=== PATIENT | male | born 1990 | race Caucasian/White ===

== ENCOUNTER 2017-03-24 14:25 | Emergency (ER) | payer BC, OTHER ==
[2017-03-24 14:44] VITALS: BP 150/97; PULSE 67; TEMP 98.2; BMI 18.6
[2017-03-24] MEDS ORDERED: IBUPROFEN 600 MG TABLET (FP) PO ONE ×2 (14:55→15:25)
--- NOTE | 2017-03-24 14:56 | PDOC ---
History of Present Illness - General History Source: Patient Exam Limitations: No Limitations - History of Present Illness Initial Comments: 03/24/17 15:00 The patient is a 26 year old male, with no significant past medical history, who presents to the emergency department with swelling and pain to his left knee status [place]. The patient reports that as he was running through the waves and lost his footing twisting his left knee and then subsequently fell on it. He reports that his pain is a 7 /10 in severity and he cannot ambulate without assistance and has difficulty straightening out his left leg He denies chest pain, shortness of breath, headache, lightheadedness and dizziness. The patient denies head injury. He denies any other bodily pain or injury. Allergies: None Social history: Current everyday smoker (5 cigarettes per day), smoked marijuana , drinks alcohol socially <Patria Denney - Last Filed: 03/24/17 18:20> <Scar Grimes - Last Filed: 03/25/17 10:04> <Kay Porter - Last Filed: 03/25/17 21:25> - General Chief Complaint: Injury Stated Complaint: LEFT KNEE INJURY Time Seen by Provider: 03/24/17 14:52 Past History <Patria Denney - Last Filed: 03/24/17 18:20> <Scar Grimes - Last Filed: 03/25/17 10:04> - Past Medical History Other medical history: H/O DEPRESSION - Surgical History Appendectomy: Yes (05/15/14) - Psycho/Social/Smoking Cessation Hx Anxiety: No Suicidal Ideation: No Smoking History: Current every day smoker Have you smoked in the past 12 months: Yes Number of Cigarettes Smoked Daily: 5 Information on smoking cessation initiated: Yes 'Breaking Loose' booklet given: 03/24/17 Hx Alcohol Use: Yes (RARELY SOCIAL) Drug/Substance Use Hx: Yes (MARIJUAN) Substance Use Type: Alcohol, Marijuana Hx Substance Use Treatment: No <Kay Porter - Last Filed: 03/25/17 21:25> - Past Medical History Allergies/Adverse Reactions: Allergies Allergy/AdvReac Type Severity Reaction Status Date / Time No Known Allergies Allergy Verified 03/24/17 14:26 Home Medications: Ambulatory Orders Ibuprofen [Motrin -] 600 mg PO TID PRN #21 tablet 03/24/17 Oxycodone HCl/Acetaminophen [Percocet 5-325 mg Tablet] 1 - 2 tab PO Q6H PRN #20 tab MDD 8 tabs 03/24/17 Review of Systems - Review of Systems Able to Perform ROS?: Yes Comments:: 03/24/17 15:01 GENERAL/CONSTITUTIONAL: +Difficulty ambulating No fever or chills. No weakness MUSCULOSKELETAL: +Left knee swelling and pain No neck or back pain. SKIN: No rash NEUROLOGIC: No headache, vertigo, loss of consciousness, or change in strength/ sensation. <Patria Denney - Last Filed: 03/24/17 18:20> *Physical Exam - Vital Signs Last Vital Signs Temp Pulse Resp BP Pulse Ox 98.2 F 67 18 150/97 100 03/24/17 14:25 03/24/17 14:25 03/24/17 14:25 03/24/17 14:25 03/24/17 14:25 <Patria Denney - Last Filed: 03/24/17 18:20> - Vital Signs Last Vital Signs Temp Pulse Resp BP Pulse Ox 98.2 F 67 18 150/97 100 03/24/17 14:25 03/24/17 14:25 03/24/17 14:25 03/24/17 14:25 03/24/17 14:25 <Scar Grimes - Last Filed: 03/25/17 10:04> - Vital Signs Last Vital Signs Temp Pulse Resp BP Pulse Ox 98.2 F 67 18 150/97 100 03/24/17 14:25 03/24/17 14:25 03/24/17 14:25 03/24/17 14:25 03/24/17 14:25 - Physical Exam Comments: GENERAL: Awake, alert, and fully oriented, in no acute distress. Appears uncomfortable. HEAD: No signs of trauma EXTREMITIES: L knee with large effusion. +Tenderness over the proximal tibia/ patellar tender insertion point. Patient unable to actively extend his left knee. MCL/LCL intact. Difficult to examine PCL/ACL due to pain/limited movement. Remainder of extremities with normal range of motion, no edema. No clubbing or cyanosis. No cords, erythema, or tenderness NEUROLOGICAL: Cranial nerves II through XII grossly intact. Normal speech. Motor and sensation intact. Unable to test gait due to pain. SKIN: Warm, Dry, normal turgor, no rashes or lesions noted. <Kay Porter - Last Filed: 03/25/17 21:25> Procedures - Splinting Pre-Made Type: knee immobilizer <Kay Porter - Last Filed: 03/25/17 21:25> ED Treatment Course - RADIOLOGY Radiograph Interpretation: 03/24/17 18:20 Referring Physician: Kay Porter Patient Name: Oniel Pena DATE OF SERVICE: 2017-03-24 15:15:35.0 IMAGES: 4 EXAM: Left knee x-ray HISTORY:Trauma. Pain COMPARISON: None. FINDINGS:AP and sunrise and crosstable lateral views of the left knee are within normal limits. IMPRESSION: Normal study THIS DOCUMENT HAS BEEN ELECTRONICALLY SIGNED Brandon Carmona MD 03/24/2017 17: 36 SANDY Pitts <Patria Denney - Last Filed: 03/24/17 18:20> - Medications Given in the ED: ED Medications Discontinued Medications Generic Name Dose Route Start Last Admin Trade Name Balta PRN Reason Stop Dose Admin Ibuprofen 600 mg 03/24/17 14:55 03/24/17 15:35 Motrin - PO 03/24/17 14:56 600 mg ONCE ONE Administration Oxycodone/Acetaminophen 2 combo 03/24/17 16:08 03/24/17 16:11 Percocet 5/325 - PO 03/24/17 16:09 2 combo ONCE ONE Administration <Scar Grimes - Last Filed: 03/25/17 10:04> Medical Decision Making - Medical Decision Making 03/25/17 08:34 Left Message on patient's cell phone informing him that x-ray over-read showed possible tibial plateau fracture and that he needs an MRI and ORTHO follow up as soon as possible. Left our ED number and informed staff of this should he call back. 03/25/17 10:04 Spoke with the patient himself and informed him of the need for MRI due to the possiblity of Tibial Plateau Fracture. Will be seen by DR Jesus in [facility] at 11am- I spoke with the staff there to inform them of the over-read findings. <Scar Grimes - Last Filed: 03/25/17 10:04> - Medical Decision Making Suspect ligamentous injury based on exam findings, however, exam somewhat limited by pain and swelling. Will place in immobilizer and have him f/u with ortho. No acute findings on XR on prelim read. <Kay Porter - Last Filed: 03/25/17 21:25> *DC/Admit/Observation/Transfer - Attestations Scribe Attestion: 03/24/17 15:01 Documentation prepared by JIAN Hernandez, acting as medical management specialist for Kay Porter MD. <Patria Denney - Last Filed: 03/24/17 18:20> <Scar Grimes - Last Filed: 03/25/17 10:04> - Discharge Dispostion Admit: No <Kay Porter - Last Filed: 03/25/17 21:25> Diagnosis at time of Disposition: Knee pain, acute Qualifiers: Laterality: left Qualified Code(s): M25.562 - Pain in left knee - Discharge Dispostion Disposition: HOME Condition at time of disposition: Stable - Prescriptions Prescriptions: Ibuprofen [Motrin -] 600 mg PO TID PRN #21 tablet PRN Reason: Pain Oxycodone HCl/Acetaminophen [Percocet 5-325 mg Tablet] 1 - 2 tab PO Q6H PRN #20 tab MDD 8 tabs PRN Reason: Severe Pain - Referrals Referrals: Sage Jesus MD [Staff Physician] - - Patient Instructions Printed Discharge Instructions: DI for Knee Sprain, DI for Patellar Tendinopathy
[2017-03-24] MEDS ORDERED: OXYCODONE/APAP 5/325MG COMBO TABLET PO ONE (16:08)
[2017-03-24] MEDS ORDERED: OXYCODONE/APAP 5/325MG COMBO TABLET ONE (16:09)
== END 2017-03-24 18:19 | disposition home or self-care (01) ==
LOC: FER 14:25
DX: M25.562 Pain in left knee (principal); W18.39XA Other fall on same level, initial encounter; Y93.89 Activity, other specified; Y92.832 Beach as the place of occurrence of the external cause; F17.210 Nicotine dependence, cigarettes, uncomplicated; F32.9 Major depressive disorder, single episode, unspecified
CPT/HCPCS: 73562-TC-LT; 73590-TC-LT; 99282-25